=== PATIENT | male | born 1970 | race African-American/Black ===

== ENCOUNTER 2023-04-20 12:07 | Emergency (ER) | payer MEDICAID ==
[~2023-04-20] VITALS: Ht 167.6 cm; Wt 47.0 kg
[~2023-04-20 12:07] MED LIST: AMOX-424 MT; OXYC-610 PO
[2023-04-20 12:14] VITALS: O2SAT 94
[2023-04-20 14:06] LABS: BASOPHILS % 0.4 % (0.0-2.0); EOSINOPHILS % 0.7 % (0.0-5.0); HEMATOCRIT. 29.3 % (42.0-52.0); HEMOGLOBIN. 9.7 g/dL (14.0-18.0); LYMPHOCYTES % 7.5 % (20.0-50.0); MEAN CORPUSCULAR HEMOGLOBIN 27.7 pg (28.0-32.0); MEAN CORPUSCULAR VOLUME 83.5 fL (80.0-94.0); MEAN PLATELET VOLUME 7.2 fl (7.4-10.4); MONOCYTES % 10.1 % (2.0-8.0); NEUTROPHILS % 81.3 % (40.0-76.0); PLATELET 342 x1000/uL (130-400); RED BLOOD CELL COUNT 3.51 mill/uL (4.7-6.1); RED CELL DISTRIBUTION WIDTH 15.7 % (11.6-14.6)
[2023-04-20] MEDS ORDERED: HYDROCODONE/ACETAMINOPHEN 5/325MG TABLET PO ONE (14:15)
[2023-04-20] MEDS: AMPICILLIN SOD/SULBACTAM NA 3 G in SODIUM CHLORIDE 0.9% 100 ML IV SCH ×2 (14:15→21:25)
[2023-04-20 14:35] LABS: CHLORIDE 106 mEq/L (98-107)
[2023-04-20] MEDS ORDERED: POTASSIUM CHLORIDE 20MEQ TABLET SR PO ONE (15:00)
[2023-04-20] MEDS ORDERED: MORPHINE SULFATE 4 MG/ML CPJ (NOT FOR IM USE) IV ONE (20:00)
[2023-04-20 22:00] VITALS: TEMP 99.3
[2023-04-21 00:46] VITALS: BP 148/95; PULSE 116; RESP 12
== END 2023-04-21 00:58 | disposition short-term general hospital (02) ==
LOC: ER 12:09 → CANBEDREQ 04-21 00:45 → ER 04-21 00:58
DX: L97.229 Non-pressure chronic ulcer of left calf with unspecified severity (principal); L97.219 Non-pressure chronic ulcer of right calf with unspecified severity; E87.6 Hypokalemia; Z20.822 Contact with and (suspected) exposure to COVID-19; I10 Essential (primary) hypertension; Z87.440 Personal history of urinary (tract) infections; Z98.890 Other specified postprocedural states; Z88.2 Allergy status to sulfonamides
CPT/HCPCS: 80053; 83605; 85025; 87040; 36415; 96365; 96366; 96375; 99285; 87426; J0295; J2270; J7050; C9803; Z7610 ×2

== ENCOUNTER 2024-12-25 21:44 | Emergency (ER) | payer BC, MEDICAID ==
[~2024-12-25] VITALS: Ht 170.2 cm; Wt 50.0 kg
[~2024-12-25 21:44] MED LIST changes: -AMOX-424 MT; +FINA5TAB11 PO; +GABA-1180 PO; +TAMS-11 PO
[2024-12-25 21:52] VITALS: O2SAT 98
[2024-12-25 22:46] LABS: BASOPHILS % 0.3 % (0.0-2.0); EOSINOPHILS % 1.8 % (0.0-5.0); HEMATOCRIT. 36.1 % (42.0-52.0); HEMOGLOBIN. 11.7 g/dL (14.0-18.0); LYMPHOCYTES % 31.8 % (20.0-50.0); MEAN CORPUSCULAR HEMOGLOBIN 30.4 pg (28.0-32.0); MEAN CORPUSCULAR HGB CONC 32.5 g/dL (31.0-37.0); MEAN CORPUSCULAR VOLUME 93.6 fL (80.0-94.0); MEAN PLATELET VOLUME 8.2 fl (7.4-10.4); NEUTROPHILS % 57.1 % (40.0-76.0); PLATELET 325 x1000/uL (130-400); RED BLOOD CELL COUNT 3.86 mill/uL (4.7-6.1); RED CELL DISTRIBUTION WIDTH 14.4 % (11.6-14.6); WHITE BLOOD COUNT 10.9 x1000/uL (4.5-11.0)
[2024-12-25 22:51] LABS: CHLORIDE 104 mEq/L (98-107); POTASSIUM 4.5 mEq/L (3.5-5.1); SODIUM 140 mEq/L (136-145)
[2024-12-25 22:52] LABS: CALCIUM 9.3 mg/dL (8.7-10.4); CARBON DIOXIDE 26 mEq/L (21-32)
[2024-12-25 22:57] LABS: GLUCOSE 119 mg/dL (70-105); UREA NITROGEN BLOOD 38 mg/dL (9-23)
[2024-12-25 22:58] LABS: ALANINE AMINOTRANSFERASE < 7 IU/L (10-49)
[2024-12-25 22:59] LABS: ASPARTATE AMINOTRANSFERASE 10 IU/L (<34); BILIRUBIN DIRECT < 0.1 mg/dL (<=3.0); BILIRUBIN TOTAL 0.3 mg/dL (0.1-1.0)
[2024-12-25] MEDS: SODIUM CHLORIDE 0.9% (SEPSIS BOLUS) IV ONE (23:06)
[2024-12-25 23:10] LABS: CREATININE 2.2 mg/dL (0.6-1.3)
[2024-12-25] MEDS: PIPERACILLIN/TAZO 3.375G/50ML 50 ML IV ONE (23:10)
[2024-12-25] MEDS: ONDANSETRON HCL 4MG/2ML INJ IV ONE (23:11)
[2024-12-25] MEDS: FENTANYL CITRATE/PF 50MCG/ML 2ML VIAL IV ONE (23:20)
[2024-12-25 23:23] LABS: LACTIC ACID 3.5 mmol/L (0.4-2.0)
[2024-12-26 04:29] VITALS: BP 146/83; PULSE 97; RESP 13; TEMP 36.8; O2SAT 100
== END 2024-12-26 04:53 | disposition short-term general hospital (02) ==
LOC: ER 21:44
DX: A41.9 Sepsis, unspecified organism (principal); R65.20 Severe sepsis without septic shock; G82.20 Paraplegia, unspecified; I10 Essential (primary) hypertension; Z88.1 Allergy status to other antibiotic agents; Z88.2 Allergy status to sulfonamides; Z89.612 Acquired absence of left leg above knee; Z93.3 Colostomy status; Z98.890 Other specified postprocedural states; Z79.899 Other long term (current) drug therapy
CPT/HCPCS: 99291; 74176; 96365; 96375; 80076; 80048; 83605 ×2; 85025; 87040; 36415; 71045; 93005; J3010; J2405; J2543; J7030

== ENCOUNTER 2025-07-20 17:51 | Inpatient (IN) | payer MEDICAID ==
[~2025-07-20] VITALS: Ht 170.2 cm; Wt 54.4 kg
[~2025-07-20 17:51] MED LIST changes: -OXYC-610 PO; -TAMS-11 PO; +TAMS-54 PO
[2025-07-20 17:52] VITALS: O2SAT 99
[2025-07-20] MEDS: SODIUM CHLORIDE 0.9% (SEPSIS BOLUS) IV ONE (18:25)
[2025-07-20] MEDS ORDERED: MORPHINE SULFATE 4 MG/ML INJ (FOR IV/IM USE) IV ONE (18:45)
[2025-07-20] MEDS ORDERED: ONDANSETRON HCL 4MG/2ML INJ IV ONE (18:45)
[2025-07-20] MEDS: CEFTRIAXONE 1GM/50ML 50 ML IV ONE (19:18)
[2025-07-20 19:20] LABS: HEMATOCRIT. 37.9 % (42.0-52.0); HEMOGLOBIN. 11.9 g/dL (14.0-18.0); MEAN PLATELET VOLUME 8.0 fl (7.4-10.4); PLATELET 352 x1000/uL (130-400); RED BLOOD CELL COUNT 4.08 mill/uL (4.7-6.1); RED CELL DISTRIBUTION WIDTH 14.3 % (11.6-14.6)
[2025-07-20 19:30] LABS: CREATININE 2.4 mg/dL (0.6-1.3)
[2025-07-20 19:31] LABS: INR 1.0; UREA NITROGEN BLOOD 32 mg/dL (9-23)
[2025-07-20 19:32] LABS: ASPARTATE AMINOTRANSFERASE 9 IU/L (<34)
[2025-07-20 19:33] LABS: BILIRUBIN DIRECT 0.2 mg/dL (<=3.0); BILIRUBIN TOTAL 0.5 mg/dL (0.1-1.0); PROTEIN TOTAL 8.9 g/dL (6.0-8.3)
[2025-07-20 19:39] LABS: LYMPHOCYTES % MANUAL 8.0 % (20.0-50.0); MONOCYTES % MANUAL 8.0 % (2.0-8.0); NEUTROPHILS % MANUAL 84.0 % (45.0-75.0); PLATELET ESTIMATE NORMAL
[2025-07-20] MEDS: ONDANSETRON HCL 4MG/2ML INJ IV SCH (20:42)
[2025-07-20] MEDS: MORPHINE SULFATE 4 MG/ML INJ (FOR IV/IM USE) IV SCH (20:43)
[2025-07-21] MEDS: OXYCODONE HCL 10MG TABLET PO PRN (05:44)
[2025-07-21 08:00] VITALS: BP 137/84; PULSE 115; RESP 18; TEMP 36.5
[2025-07-21 08:29] VITALS: BP 148/85; PULSE 103; RESP 16; TEMP 36.418
[2025-07-21] MEDS: PIPERACILLIN/TAZO 3.375G/50ML 50 ML IV SCH (08:44)
[2025-07-21] MEDS: LINEZOLID 600MG TABLET PO SCH (09:14)
[2025-07-21 12:00] VITALS: BP 147/86; PULSE 102; RESP 19; TEMP 36.2
[2025-07-21] MEDS: SODIUM CHLORIDE 0.9% 1,000 ML IV SCH (15:44)
[2025-07-21 16:00] VITALS: BP 140/78; PULSE 98; RESP 18; TEMP 36.1
[2025-07-21] MEDS: GABAPENTIN 300MG CAPSULE PO SCH (21:59)
[2025-07-22] VITALS: BP 131/68; PULSE 89; RESP 18; TEMP 36.8
[2025-07-22 04:00] VITALS: BP 128/78; PULSE 94; RESP 18; TEMP 37
[2025-07-22 08:00] VITALS: BP 136/76; PULSE 96; RESP 20; TEMP 36.4; O2SAT 99
[2025-07-22 12:00] VITALS: BP 131/82; PULSE 102; RESP 20; TEMP 36.4; O2SAT 97
[2025-07-22 16:00] VITALS: BP 145/90; PULSE 95; RESP 20; TEMP 36.3; O2SAT 99
[2025-07-22 20:00] VITALS: BP 150/87; PULSE 108; RESP 18; TEMP 36.7; O2SAT 95
[2025-07-23] VITALS: BP 130/86; PULSE 86; RESP 18; TEMP 36.9; O2SAT 95
[2025-07-23 04:00] VITALS: BP 129/70; PULSE 104; RESP 18; TEMP 36.7; O2SAT 97
[2025-07-23 08:00] VITALS: BP 142/85; PULSE 104; RESP 18; TEMP 36.8; O2SAT 100
[2025-07-23 12:00] VITALS: BP 137/85; PULSE 104; RESP 18; TEMP 36.6; O2SAT 98
[2025-07-23 13:58] LABS: BASOPHILS % 0.3 % (0.0-2.0); EOSINOPHILS % 2.2 % (0.0-5.0); HEMATOCRIT. 30.1 % (42.0-52.0); HEMOGLOBIN. 9.8 g/dL (14.0-18.0); LYMPHOCYTES % 20.7 % (20.0-50.0); MEAN PLATELET VOLUME 7.7 fl (7.4-10.4); MONOCYTES % 9.2 % (2.0-8.0); NEUTROPHILS % 67.6 % (40.0-76.0); PLATELET 339 x1000/uL (130-400); RED BLOOD CELL COUNT 3.32 mill/uL (4.7-6.1); RED CELL DISTRIBUTION WIDTH 14.1 % (11.6-14.6)
[2025-07-23 14:11] LABS: CREATININE 1.8 mg/dL (0.6-1.3); UREA NITROGEN BLOOD 16.0 mg/dL (9-23)
[2025-07-23 16:00] VITALS: BP 142/82; PULSE 98; RESP 19; TEMP 37.4; O2SAT 99
[2025-07-23] MEDS ORDERED: LINE600T14 MT (16:05)
[2025-07-23] MEDS ORDERED: AMOX1TAB16 MT (16:05)
[2025-07-23 17:14] VITALS: BP 142/82; PULSE 98; RESP 19; TEMP 99.3
== END 2025-07-23 20:25 | disposition home health service (06) | DRG 720 ==
LOC: ER 17:51 → 4WST 20:31 → EDBEDREQ 20:54 → EDBEDREQTM 20:54 → ENRESERV 22:04
PROVIDERS: ADMIT Internal Medicine; ATTEND Internal Medicine
DX: A41.9 Sepsis, unspecified organism (principal); L89.314 Pressure ulcer of right buttock, stage 4; L89.154 Pressure ulcer of sacral region, stage 4; I96 Gangrene, not elsewhere classified; L89.324 Pressure ulcer of left buttock, stage 4; G82.20 Paraplegia, unspecified; I12.9 Hypertensive chronic kidney disease with stage 1 through stage 4 chronic kidney disease, or unspecified chronic kidney disease; D64.9 Anemia, unspecified; N17.9 Acute kidney failure, unspecified; L85.3 Xerosis cutis; L60.3 Nail dystrophy; N18.9 Chronic kidney disease, unspecified; N13.6 Pyonephrosis; Z88.2 Allergy status to sulfonamides; Z88.1 Allergy status to other antibiotic agents; Z87.442 Personal history of urinary calculi; Z93.3 Colostomy status; Z74.01 Bed confinement status; Z55.6 Problems related to health literacy; Z89.512 Acquired absence of left leg below knee; Z79.899 Other long term (current) drug therapy
CPT/HCPCS: 36415; 71045; 80048; 80076; 82962; 83605; 84145; 85025; 93005; 93922; 96365; 99291; J0696; J2270; J2405; J2543; J7030